=== PATIENT | female | born 1960 | race Caucasian/White ===

== ENCOUNTER 2022-05-17 12:53 | Emergency (ER) | payer OTHER ==
[2022-05-17] MEDS ORDERED: Ondansetron 4 MG Tab.DIS PO ONE (13:14)
[2022-05-17] MEDS ORDERED: Sodium Chloride 0.9% 1,000 ML IV ONE ×2 (13:26→17:32)
[2022-05-17 14:00] LABS: ESTIMATED GFR 39 mL/min (>60)
[2022-05-17 14:16] LABS: CORONAVIRUS COVID-19 NAA NEGATIVE (NEGATIVE)
[2022-05-17] MEDS ORDERED: Lactated Ringers 1,000 ML IV ONE ×3 (14:38→17:28)
[2022-05-17] MEDS ORDERED: Ketorolac 30 MG/ML SDV IVPUSH ONE (14:44)
[2022-05-17] MEDS ORDERED: Piperacillin/Tazobactam 2.25 GM in Sodium Chloride 0.9% 50 ML IV SCH (17:15)
[2022-05-17] MEDS ORDERED: Acetaminophen 325 MG Tab PO ONE (17:27)
[2022-05-17] MEDS ORDERED: VANCOmycin 2 GM/400 ML 400 ML IV ONE (17:30)
[2022-05-17] MEDS ORDERED: Acetaminophen 650 MG Supp ONE (17:38)
[2022-05-17] MEDS ORDERED: 50% Dextrose in Water 50 ML Syringe IVPUSH ONE ×2 (17:44→18:51)
[2022-05-17] MEDS ORDERED: Norepinephrine Bit/D5W Premix 250 ML ONE (17:52)
[2022-05-17] MEDS ORDERED: Acetaminophen 650 MG Supp RECTAL ONE (17:55)
[2022-05-17] MEDS ORDERED: Norepinephrine 4 MG in Dextrose 5% in Water 246 ML IV SCH ×4 (17:56→21:45)
[2022-05-17] MEDS ORDERED: 50% Dextrose in Water 50 ML Syringe ONE (18:49)
[2022-05-17] MEDS ORDERED: Iopamidol 755 MG/ML 150 ML Bottle IV ONE (18:52)
[2022-05-17 20:04] LABS: PO2 ARTERIAL,POC 162 mmHg (83-108)
[2022-05-17] MEDS ORDERED: Saccharomyces Boulardii (Probiotic) 250 MG Cap PO SCH (21:00)
== END 2022-05-17 20:59 ==
LOC: FB.ED 12:53
DX: A41.9 Sepsis, unspecified organism (principal); R65.21 Severe sepsis with septic shock; Z88.8 Allergy status to other drugs, medicaments and biological substances; Z79.899 Other long term (current) drug therapy; Z20.822 Contact with and (suspected) exposure to COVID-19
CPT/HCPCS: 0241U; 36415; 51702; 71045; 71275; 74177; 80053; 81001; 82803; 82947; 83605; 84484; 85025; 87040; 87086; 87088; 93005; 94660; 96361; 96365; 96366; 96367; 96368; 96375; 96376; 99285; A9270; J1885; J2543; J3370; J3490; J7030; J7060; J7120; Q0162; Q9967; 36410